=== PATIENT | male | born 1985 | race Caucasian/White ===

== ENCOUNTER → 2020-12-14 09:07 | Outpatient (CLI) | payer OTHER, SELFPAY ==
[2020-12-14] MEDS: COVID-19 VACC, Ad26(JANSSEN)/PF 0.5 ML IM (09:13)
== END ==
PROVIDERS: PCP Pediatrics; Visit Provider Internal Medicine
DX: Z23 Encounter for immunization (principal)
CPT/HCPCS: 0031A; 91303